=== PATIENT | male | born 1935 | race Caucasian/White ===

== ENCOUNTER → 2016-05-01 | Outpatient (CLI) | payer OTHER ==
[~2016-05-01] MED LIST: CLOP75TA41 PO; FER325T PO; LEV50T PO; LISI-275 PO; METO25TA5 PO; NIAC500T71 PO; SIMV-13 PO
[2016-05-01 14:53] LABS: Basophils # (auto) 0 uL; Basophils % (auto) 0.3 % (0.0-2.0); Eosinophils # (auto) 0.6 uL; Eosinophils % (auto) 4.9 % (0.0-7.0); Lymphocytes # (auto) 2.3 uL; Lymphocytes % (auto) 19.5 % (10.0-50.0); Mean Corpuscular Hemoglobin 30.7 pg (28.0-32.0); Mean Corpuscular Hgb Conc. 32.4 g/dL (32.0-36.0); Mean Corpuscular Volume 94.8 fL (80.0-100.0); Mean Platelet Volume 7.5 fL (7.4-10.4); Monocytes # (auto) 0.8 uL; Monocytes % (auto) 6.3 % (0.0-12.0); Neutrophils # (auto) 8.3 uL; Platelet Count (auto) 295 10^3/uL (140-450); Red Cell Distribution Width 16.8 % (11.6-16.0)
[2016-05-01 15:30] LABS: Albumin 3.9 g/dL (3.4-5.0); BUN/Creatinine Ratio 14.9; Bilirubin, Total 0.3 mg/dL (0.2-1.0); Calcium 9.8 mg/dL (8.5-10.1); Potassium 3.6 mmol/L (3.5-5.1); Total Protein 7.1 g/dL (6.4-8.2)
== END | disposition home or self-care (01) ==
LOC: LAB 14:35
PROVIDERS: ATTEND Internal Medicine
DX: C61 Malignant neoplasm of prostate (principal)
CPT/HCPCS: 36415; 80053; 83615; 84153; 85025

== ENCOUNTER 2016-06-11 09:29 | Day surgery (SDC) | payer OTHER ==
[2016-06-07 11:46] LABS: DEFINITIVE VIEW TRANSMISSION; Hematocrit 32.4 % (41.0-53.0); Hemoglobin 10.7 g/dL (13.5-17.5); Mean Corpuscular Hemoglobin 31.6 pg (28.0-32.0); Mean Corpuscular Hgb Conc. 33.1 g/dL (32.0-36.0); Mean Corpuscular Volume 95.5 fL (80.0-100.0); Mean Platelet Volume 7.1 fL (7.4-10.4); Platelet Count (auto) 333 10^3/uL (140-450); Red Cell Distribution Width 14.1 % (11.6-16.0); White Blood Cell 11.2 10^3/uL (4.4-10.8)
[2016-06-07 11:53] LABS: Metamyelocytes % 0; Myelocytes % 0; Promyelocytes % 0; Reactive Lymphocytes 0
[2016-06-07 11:58] LABS: INR 0.99 (0.9-1.15); Partial Thromboplastin Time 25.7 sec (22.64-33.71); Prothrombin Time 10.7 sec (9.37-12.3)
[2016-06-07 13:59] LABS: Platelet Estimate Adequate; RBC Morphology Normal
[~2016-06-11] VITALS: Ht 177.8 cm; Wt 57.2 kg
[~2016-06-11 09:29] MED LIST changes: +ASPI81TA27 PO; +CALCTAB83 OR; +CHOL20009 PO; -CLOP75TA41 PO; +LIDOCAINE VISCOUS 2% 15ML UD ONE; +MIDAZOLAM HCL 5 MG/ML-1ML VIAL ONE; -SIMV-13 PO; +SODIUM CHLORIDE LOCK 10 ML ONE; +diphenhdrAMINE HCL 50 MG/1 ML VL ONE; +fentaNYL CITRATE 100 MCG/2 ML VL ONE
[2016-06-11 12:40] VITALS: BP 114/62
== END 2016-06-11 12:51 | disposition home or self-care (01) ==
LOC: GI 09:29
PROVIDERS: ATTEND Internal Medicine Gastroenterology
DX: R13.10 Dysphagia, unspecified (principal); Z85.01 Personal history of malignant neoplasm of esophagus; Z90.49 Acquired absence of other specified parts of digestive tract; K63.89 Other specified diseases of intestine; Z95.1 Presence of aortocoronary bypass graft; C61 Malignant neoplasm of prostate
CPT/HCPCS: 36415; 43213; 43249; 85007; 85027; 85610; 85730; J2250; J3010; J7030

== ENCOUNTER 2016-06-12 11:28 | Observation (INO) | payer OTHER ==
[~2016-06-12] VITALS: Ht 177.8 cm; Wt 56.2 kg
[~2016-06-12 11:28] MED LIST changes: -LIDOCAINE VISCOUS 2% 15ML UD ONE; -MIDAZOLAM HCL 5 MG/ML-1ML VIAL ONE; -SODIUM CHLORIDE LOCK 10 ML ONE; -diphenhdrAMINE HCL 50 MG/1 ML VL ONE; -fentaNYL CITRATE 100 MCG/2 ML VL ONE
[2016-06-12] MEDS ORDERED: SODIUM CHLORIDE 0.9% 1,000 ML IVB ONE (12:11)
[2016-06-12 12:49] LABS: Basophils # (auto) 0 uL; Basophils % (auto) 0.3 % (0.0-2.0); Eosinophils # (auto) 0.6 uL; Eosinophils % (auto) 6.8 % (0.0-7.0); Hematocrit 31.2 % (41.0-53.0); Hemoglobin 10.3 g/dL (13.5-17.5); Lymphocytes # (auto) 1.8 uL; Lymphocytes % (auto) 21.7 % (10.0-50.0); Mean Corpuscular Hemoglobin 30.7 pg (28.0-32.0); Mean Corpuscular Hgb Conc. 32.9 g/dL (32.0-36.0); Mean Corpuscular Volume 93.4 fL (80.0-100.0); Mean Platelet Volume 7.4 fL (7.4-10.4); Monocytes # (auto) 0.8 uL; Monocytes % (auto) 9.8 % (0.0-12.0); Neutrophils # (auto) 5.2 uL; Neutrophils % (auto) 61.4 % (37.0-80.0); Platelet Count (auto) 274 10^3/uL (140-450); Red Cell Distribution Width 14.5 % (11.6-16.0); White Blood Cell 8.4 10^3/uL (4.4-10.8)
[2016-06-12 12:58] LABS: Albumin 3.6 g/dL (3.4-5.0); BUN/Creatinine Ratio 16.7; Calcium 9.4 mg/dL (8.5-10.1); Magnesium 2.4 mg/dL (1.6-2.6)
[2016-06-12 13:00] LABS: Bilirubin, Total 0.2 mg/dL (0.2-1.0); Total Protein 6.8 g/dL (6.4-8.2)
[2016-06-12 13:02] LABS: INR 1.01 (0.9-1.15); Partial Thromboplastin Time 26.9 sec (22.64-33.71); Prothrombin Time 10.9 sec (9.37-12.3)
[2016-06-12] MEDS ORDERED: ACETAMINOPHEN 325 MG TAB PO ONE ×2 (13:25→13:45)
[2016-06-12 15:48] LABS: Urine Bilirubin Negative (Negative); Urine Blood Negative /uL (Negative); Urine Color Yellow (Yellow); Urine Glucose Normal (Normal); Urine Ketone Negative (Negative); Urine Nitrite Negative (Negative); Urine RBC 1 /hpf (0 - 3); Urine Urobilinogen Normal (Negative)
[2016-06-12 17:09] VITALS: BP 129/64
== END 2016-06-12 17:32 | disposition home or self-care (01) | DRG 103 ==
LOC: ER 11:28 → OVERFLOW 12:13 → ER 17:21
PROVIDERS: ADMIT Family Medicine; ATTEND Family Medicine
DX: R51 Headache (principal); C79.51 Secondary malignant neoplasm of bone; C15.9 Malignant neoplasm of esophagus, unspecified; C61 Malignant neoplasm of prostate; R63.4 Abnormal weight loss; D63.8 Anemia in other chronic diseases classified elsewhere; I25.10 Atherosclerotic heart disease of native coronary artery without angina pectoris; I25.2 Old myocardial infarction; Z82.49 Family history of ischemic heart disease and other diseases of the circulatory system; Z95.1 Presence of aortocoronary bypass graft
CPT/HCPCS: 36415; 70450; 71010; 80053; 81001; 83735; 84484; 85025; 85610; 85730; 87040; 93005; 96360; 96361; 99285; G0378; J7030

== ENCOUNTER → 2016-07-09 | Outpatient (CLI) | payer OTHER | END | disposition home or self-care (01) | LOC: LAB 09:35 | PROVIDERS: ATTEND Internal Medicine | DX: D37.02 Neoplasm of uncertain behavior of tongue (principal) | CPT/HCPCS: 36415; 82565; 84520 ==

== ENCOUNTER → 2016-07-26 | Outpatient (CLI) | payer OTHER | END | disposition home or self-care (01) | LOC: LAB 11:00 | PROVIDERS: ATTEND Otolaryngology | DX: C02.9 Malignant neoplasm of tongue, unspecified (principal) ==